=== PATIENT | female | born 1975 | race Two or more races ===

== ENCOUNTER 2018-12-16 12:49 | Outpatient (CLI) | payer OTHER | END 2018-12-16 12:52 | disposition home or self-care (01) | LOC: EDBD 12:49 → NUCLEAR 12:49 | DX: C73 Malignant neoplasm of thyroid gland (principal); E89.0 Postprocedural hypothyroidism | CPT/HCPCS: 79005; A9517 ==

== ENCOUNTER → 2018-12-23 | Outpatient (CLI) | payer OTHER | END | disposition home or self-care (01) | LOC: NUCLEAR 10:30 | DX: C73 Malignant neoplasm of thyroid gland (principal); E89.0 Postprocedural hypothyroidism ==

== ENCOUNTER 2020-01-19 08:12 | Outpatient (CLI) | payer OTHER | END 2020-01-19 08:20 | disposition home or self-care (01) | LOC: LAB 08:12 | PROVIDERS: ATTEND Internal Medicine Sports Medicine | DX: Z32.00 Encounter for pregnancy test, result unknown (principal) ==

== ENCOUNTER 2020-01-19 09:12 | Outpatient (CLI) | payer OTHER | END 2020-01-19 10:26 | disposition home or self-care (01) | LOC: NUCLEAR 09:12 | PROVIDERS: ATTEND Internal Medicine Sports Medicine | DX: C73 Malignant neoplasm of thyroid gland (principal) | CPT/HCPCS: 78020; 78018; A9528 ==